=== PATIENT | female | born 1995 | race Caucasian/White ===

== ENCOUNTER 2023-04-15 21:07 | Emergency (ER) | payer SELFPAY ==
[~2023-04-15] VITALS: Ht 152.4 cm; Wt 68.2 kg
[2023-04-15 21:15] VITALS: TEMP 98.3
[2023-04-15] MEDS: KETOROLAC TROMETHAMINE 60 MG/2 ML VIAL IM ONE (23:00)
[2023-04-15 23:33] VITALS: BP 143/98; PULSE 120; RESP 16
[2023-04-15] MEDS: LIDOCAINE 1%/EPI 1:200,000/PF 30 ML VIAL SQ ONE (23:55)
[2023-04-16] MEDS ORDERED: MELO-107 PO (00:14)
== END 2023-04-16 00:46 | disposition home or self-care (01) ==
LOC: EMS 21:07
DX: S01.01XA Laceration without foreign body of scalp, initial encounter (principal); S20.212A Contusion of left front wall of thorax, initial encounter; S70.02XA Contusion of left hip, initial encounter; V89.2XXA Person injured in unspecified motor-vehicle accident, traffic, initial encounter; Y93.89 Activity, other specified; Y92.89 Other specified places as the place of occurrence of the external cause; Y99.8 Other external cause status
CPT/HCPCS: 99285; 70450; 71101; 73503; 12001; 96372; 73110; J1885; J3490

== ENCOUNTER 2023-04-25 21:38 | Emergency (ER) | payer SELFPAY ==
[~2023-04-25] VITALS: Ht 154.9 cm; Wt 72.7 kg
[~2023-04-25 21:38] MED LIST: MELO-107 PO
[2023-04-25 21:45] VITALS: BP 130/82; PULSE 72; RESP 18; TEMP 98.2
== END 2023-04-25 22:29 | disposition home or self-care (01) ==
LOC: EMS 21:40
DX: Z48.02 Encounter for removal of sutures (principal)
CPT/HCPCS: 99281; Z7502